=== PATIENT | female | born 1945 | race African-American/Black ===

== ENCOUNTER → 2016-12-21 | Day surgery (SDC) | payer OTHER ==
[~2016-12-21] MED LIST: FENTANYL PF 100 MCG/2 ML VIAL. IV PRN; HYDROMORPHONE 2 MG/ML VIAL. IV PRN; IV RINGERS,LACTATED 1000ML 1,000 ML IV SCH; LIDOCAINE 1% 1 ML SYRINGE. ID PRN; MORPHINE SULFATE 2 MG/ML DISP.SYRIN. IV PRN; ONDANSETRON PF 4 MG/2 ML VIAL. IV PRN; PROPOFOL 40 ML IV ONE
--- NOTE | 2016-12-21 08:26 | PDOC1 ---
HISTORY & PHYSICAL H&P Brook Diaz [id number] 1945 12/01/2016 04:00 PM 09/05 [employer] [facility], [facility] OUR PATIENTS COME FIRST [address] [place] [address] Ph. [phone] Patient: Brook Diaz Date of : 1945 Date: 12/01/2016 4:00 PM Visit Type: Consult This 71 year old female presents for Diarrhea and Blood in stool. History of Present Illness: 1. Diarrhea Stool frequency: 2 to 3 times a day. Pertinent negatives include abdominal pain , bloating and fever. Additional information: Patient has episodes of loose and watery stool. 2. Blood in stool Quality: FOBT positive. Pertinent negatives include abdominal pain and bloating. Additional information: Patient had heme positive stool during her exam with her PCP. INTAKE COMMENTS: Intake Comments: Nurse Note: the pt is here today with complaints of diarrhea and a positive hemoccult card with PCP. The pt states that she has a colonoscopy before but unsure how long ago. the pt states that she has multiple bm's a day. PROBLEM LIST: Problem Description Onset Date Left flank pain 10/31/2014 Epigastric pain 10/31/2014 GERD (gastroesophageal reflux disease) 10/31/2014 Occasional tremors 12/12/2015 Anxiety 12/12/2015 Dizziness 03/24/2016 Breast tenderness 06/02/2016 Mixed hyperlipidemia 02/17/2010 Posttraumatic stress disorder 02/17/2010 Anxiety state 02/17/2010 Depressive disorder 02/17/2010 Agoraphobia with panic attacks 02/17/2010 Musculoskeletal pain 05/25/2016 Dysuria 03/03/2016 Hyperlipidemia 01/09/2015 Acute bronchitis due to other specified organisms 12/31/2015 Frequency of urination 05/25/2016 Breast pain, left 05/25/2016 Left forearm pain 01/09/2015 PAST MEDICAL/SURGICAL HISTORY (Detailed) Disease/disorder Onset Date Management Date Comments breast bx X2 benign epidural injections LS spine section colonoscopy 2010 DDD DJD LS spine Hyperlipidemia MDD-recurrent panic disorder with agoraphobia pneumonia PTSD DIAGNOSTICS HISTORY: Test Ordered Interpretation Result completed eye exam 04/04/2006 chalazion R upper lid 04/04/2006 PAP 09/04/2007 neg 09/04/2007 Mammogram 09/04/2007 neg 09/04/2007 DEXA scan 03/19/2005 normal 03/19/2005 ELECTROCARDIOGRAM, COMPLETE 08/04/2012 SR no acute changes. 08/04/2012 Test Ordered Ordering Comments Modifier eye exam 04/04/2006 Other Reports PAP 09/04/2007 Other Reports Mammogram 09/04/2007 Other Reports DEXA scan 03/19/2005 Other Reports ELECTROCARDIOGRAM, COMPLETE 08/04/2012 Medications (Active): Started Medication Directions Instruction Stopped 03/20/2015 aspirin 81 mg tablet,delayed release take 1 tablet by oral route every day 09/28/2016 azithromycin 250 mg tablet take 2 tablet by oral route every day for 1 day then 1 tablet (250 mg) by oral route once daily for 4 days 09/28/2016 benzonatate 100 mg capsule take 1 capsule by ORAL route 3 times every day as needed 12/31/2015 Caltrate 600 + D 600 mg (1,500 mg)-800 unit chewable tablet 1 bid 12/31/2015 Dulera 200 mcg-5 mcg/actuation HFA aerosol inhaler inhale 2 puff by inhalation route 2 times every day in the morning and evening.Rinse mouth after use. sample 10/05/2016 Medrol (Kofi) 4 mg tablets in a dose pack take by mouth as directed 09/28/2016 Mucinex DM 60 mg-1,200 mg tablet,extended release take 1 cap bid 09/28/2016 ProAir HFA 90 mcg/actuation aerosol inhaler inhale 1 puff by inhalation route every 6 hours needed 12/31/2015 Singulair 10 mg tablet take 1 tablet by oral route every day in the evening 01/07/2014 Tylenol Extra Strength 500 mg tablet take 2 tablets by Oral route bid in AM and at bedtime 03/03/2016 Zyrtec 10 mg tablet take 1 tablet by ORAL route every day at bedtime Allergies: Ingredient Reaction Medication Name Comment PROCHLORPERAZINE EDISYLATE Compazine PROCHLORPERAZINE MALEATE Compazine REVIEW OF SYSTEMS System Neg/Pos Details Constitutional Negative Chills, fever, malaise and weight loss. ENMT Negative Sore throat. Eyes Negative Double vision. Respiratory Negative Dyspnea and wheezing. Cardio Negative Chest pain and irregular heartbeat/palpitations. GI Positive See HPI. GI Negative Abdominal pain, bloating and see HPI. Negative Dysuria and hematuria. Endocrine Negative Cold intolerance and heat intolerance. Psych Negative Anxiety. Integumentary Negative Hives and rash. MS Negative Joint pain. Ras/Lymph Negative Easy bleeding and easy bruising. Allergic/Immuno Negative Food allergies. PHYSICAL EXAM: Exam Findings Details Constitutional Normal Well developed. Eyes Normal Conjunctiva - Right: Normal, Left: Normal. Sclera - Right: Normal, Left: Normal. Nasopharynx Normal Lips/teeth/gums - Normal. Neck Exam Normal Inspection - Normal. Thyroid gland - Normal. Respiratory Normal Inspection - Normal. Auscultation - Normal. Cardiovascular Normal Regular rate and rhythm. No murmurs, gallops, or rubs. Vascular Normal Pulses - Carotids: Normal, Femoral: Normal, Dorsalis pedis: Normal. Abdomen Normal Inspection - Normal. Anterior palpation - No guarding. No abdominal tenderness. No hepatic enlargement. No splenic enlargement. No hernia. No Ascites. Skin Normal Inspection - Normal. Extremity Normal No edema. Psychiatric Normal Oriented to time, place, person, and situation. Appropriate mood and effect. Assessment/Plan # Detail Type Description 1. Assessment Gastrointestinal hemorrhage, unspecified gastrointestinal hemorrhage type (K92.2). Patient Plan schedule colonoscopy at Plan Orders Further diagnostic evaluations ordered today include(s) Colonoscopy to be performed today. She is to schedule a follow-up visit with José Luis Bolaños MD upon completion of work-up 2. Assessment Diarrhea, unspecified type (R19.7). Patient Plan Await colonoscopy result. Electronically signed by: José Luis Bolaños MD 12/01/2016 04:17 PM Document generated by: José Luis Bolaños 12/01/2016 04:17 PM Haley Alberto MD, Family Practice; Quan Fernandes MD Internal Medicine; Jenn Sutherland MD, Internal Medicine; Donn Bolaños MD Internal Medicine; José Luis Bolaños MD, Gastroenterology; Damon Mcfarland MD, Rheumatology, [facility], Physical Medicine/Rehab Kashif Michelle APRN ------ 12/21/16 Patient seen and examined. No change in H&P. JOSÉ LUIS BOLAÑOS MD Dec 21, 2016 08:26
--- NOTE | 2016-12-21 09:35 | PDOC4 ---
GI OP Report - Dr. Hollis Date/Time DATE: 12/21/16 TIME: 09:34 Attending Physician José Luis Hollis MD Referring Physician Indications Gastrointestinal bleeding Pre-Op See the Anesthesia note for documentation of the administered medications Procedures Colonoscopy Findings - Diverticulosis in the sigmoid colon and in the descending colon. - The examination was otherwise normal on direct and retroflexion views. - No specimens collected. Plan - Discharge patient to home. - Patient has a contact number available for emergencies. The signs and symptoms of potential delayed complications were discussed with the patient. Return to normal activities tomorrow. Written discharge instructions were provided to the patient. - Resume regular diet. - Continue present medications. - Repeat colonoscopy in 10 years for surveillance. - Return to my office as needed. JOSÉ LUIS HOLLIS MD Dec 21, 2016 09:35
[2016-12-21 09:56] VITALS: BP 125/77
== END | disposition home or self-care (01) ==
LOC: ENDOS 07:55
PROVIDERS: ATTEND Internal Medicine Gastroenterology
DX: K57.30 Diverticulosis of large intestine without perforation or abscess without bleeding (principal); F32.9 Major depressive disorder, single episode, unspecified; Z98.41 Cataract extraction status, right eye; Z98.42 Cataract extraction status, left eye
CPT/HCPCS: 45378; J2704